=== PATIENT | female | born 1965 | race Caucasian/White ===

== ENCOUNTER → 2017-12-21 | Emergency (ER) | payer MEDICARE, OTHER ==
[~2017-12-21] MED LIST: ACETAMINOPHEN 325 MG TAB PO; SOD CHLORIDE 0.9% 500 ML IV
[2017-12-21 02:24] LABS: ADD MAN DIFF? NO
[2017-12-21 02:29] LABS: WHITE BLOOD COUNT 5.2 10^3/ul (4.8-10.8)
[2017-12-21 02:29] LABS: BASOPHILS % 0.4 % (0.0-2.0); EOSINOPHILS # 0.1 10^3/ul (0.0-0.5); EOSINOPHILS % 1.7 % (0.0-7.0); HEMATOCRIT 34.5 % (37.0-47.0); HEMOGLOBIN 10.8 g/dl (12.0-16.0); LYMPHOCYTES # 1.7 10^3/ul (0.8-2.9); LYMPHOCYTES % 32.9 % (15.0-51.0); MEAN CORPUSCULAR HEMOGLOBIN 25.5 pg (29.0-33.0); MEAN CORPUSCULAR HGB CONC 31.3 g/dl (32.0-37.0); MEAN CORPUSCULAR VOLUME 81.6 fl (82.0-101.0); MEAN PLATELET VOLUME 10.7 fl (7.4-10.4); MONOCYTE # 0.3 10^3/ul (0.3-0.9); NEUTROPHIL # 3.1 10^3/ul (1.6-7.5); NEUTROPHILS % 58.8 % (39.0-77.0); PLATELET COUNT 208 10^3/UL (140-415); RED BLOOD COUNT 4.23 10^6/ul (4.20-5.40); RED CELL DISTRIBUTION WIDTH 15.7 % (11.5-14.5)
[2017-12-21 02:44] LABS: LACTIC ACID 0.7 mmol/L (0.5-2.0)
[2017-12-21 02:45] LABS: ALANINE AMINOTRANSFERASE 22 IU/L (13-69); ALBUMIN 2.5 g/dl (3.3-4.9); ALBUMIN/GLOBULIN RATIO 0.96; ALKALINE PHOSPHATASE 73 IU/L (42-121); ANION GAP 7 (8-16); ASPARTATE AMINO TRANSFERASE 22 IU/L (15-46); BILIRUBIN,INDIRECT 0.3 mg/dl (0-1.1); BILIRUBIN,TOTAL 0.3 mg/dl (0.2-1.3); BLOOD UREA NITROGEN 5 mg/dl (7-20); CALCIUM 8.6 mg/dl (8.4-10.2); CARBON DIOXIDE 30 mmol/L (21-31); CHLORIDE 101 mmol/L (97-110); GLUCOSE 87 mg/dl (70-220); MAGNESIUM 1.7 mg/dl (1.7-2.5); POTASSIUM 3.1 mmol/L (3.5-5.1); SODIUM 135 mmol/L (135-144); TOTAL PROTEIN 5.1 g/dl (6.1-8.1)
[2017-12-21 02:48] LABS: INR 1.17; PROTIME 15.1 Sec (11.9-14.9); PT RATIO 1.2
[2017-12-21 02:49] LABS: PARTIAL THROMBOPLASTIN TIME 36.5 Sec (25.0-35.0)
[2017-12-21 02:56] LABS: TROPONIN-I < 0.012 ng/ml (0.000-0.120)
[2017-12-21] MEDS: HYDROmorphONE 0.5 MG/0.5 ML SYG IV (03:58)
[2017-12-21] MEDS: POTASSIUM CHLORIDE (SR) 20 MEQ TAB PO (03:58)
== END | disposition home or self-care (01) ==
LOC: E/R 01:17
DX: L89.890 Pressure ulcer of other site, unstageable (principal); E87.6 Hypokalemia; D64.9 Anemia, unspecified; J44.9 Chronic obstructive pulmonary disease, unspecified; I25.10 Atherosclerotic heart disease of native coronary artery without angina pectoris; R40.2142 Coma scale, eyes open, spontaneous, at arrival to emergency department; R40.2252 Coma scale, best verbal response, oriented, at arrival to emergency department; R40.2362 Coma scale, best motor response, obeys commands, at arrival to emergency department; F17.210 Nicotine dependence, cigarettes, uncomplicated; A41.9 Sepsis, unspecified organism; Z95.0 Presence of cardiac pacemaker; Z79.82 Long term (current) use of aspirin
CPT/HCPCS: 36415; 71045; 80053; 83605; 83735; 84484; 85025; 85610; 85730; 87040; 93005; 96374; 99285-25

== ENCOUNTER 2017-12-22 18:18 | Emergency (ER) | payer MEDICARE, OTHER ==
[2017-12-22] MEDS: LORAZEPAM 2 MG INJ IV (19:25)
[2017-12-22] MEDS: LORAZEPAM 1 MG TAB PO (22:17)
== END 2017-12-22 22:30 | disposition home or self-care (01) ==
LOC: E/R 22:30
DX: F41.1 Generalized anxiety disorder (principal); L89.90 Pressure ulcer of unspecified site, unspecified stage; J44.9 Chronic obstructive pulmonary disease, unspecified; F17.210 Nicotine dependence, cigarettes, uncomplicated; Z79.82 Long term (current) use of aspirin; Z95.0 Presence of cardiac pacemaker
CPT/HCPCS: 96374; 99284-25

== ENCOUNTER 2018-06-04 08:12 | Inpatient (IN) | payer MEDICARE, OTHER ==
[2018-06-04] MEDS ORDERED: BISACODYL 10 MG SUPP PR (09:00)
[2018-06-04] MEDS: LORAZEPAM 2 MG INJ IM (09:02)
[2018-06-04] MEDS: SOD CHLORIDE 0.9% 500 ML IV (09:03)
[2018-06-04 09:36] LABS: ADD MAN DIFF? NO
[2018-06-04 09:38] LABS: WHITE BLOOD COUNT 7.5 10^3/ul (4.8-10.8)
[2018-06-04 09:38] LABS: BASOPHILS % 0.4 % (0.0-2.0); EOSINOPHILS % 0.3 % (0.0-7.0); HEMATOCRIT 40.8 % (37.0-47.0); HEMOGLOBIN 12.7 g/dl (12.0-16.0); LYMPHOCYTES # 1.1 10^3/ul (0.8-2.9); LYMPHOCYTES % 14.5 % (15.0-51.0); MEAN CORPUSCULAR HEMOGLOBIN 24.5 pg (29.0-33.0); MEAN CORPUSCULAR HGB CONC 31.1 g/dl (32.0-37.0); MEAN CORPUSCULAR VOLUME 78.6 fl (82.0-101.0); MONOCYTE # 0.3 10^3/ul (0.3-0.9); MONOCYTES % 4.3 % (0.0-11.0); NEUTROPHILS % 80.1 % (39.0-77.0); PLATELET COUNT 253 10^3/UL (140-415); RED BLOOD COUNT 5.19 10^6/ul (4.20-5.40); RED CELL DISTRIBUTION WIDTH 15.7 % (11.5-14.5)
[2018-06-04 09:46] LABS: ADD UMIC YES; UR ASCORBIC ACID NEGATIVE (NEGATIVE); UR BACTERIA FEW /HPF (NONE SEEN); UR BILIRUBIN (Dip) NEGATIVE (NEGATIVE); UR BLOOD (Dip) 1+ mg/dL (NEGATIVE); UR CLARITY SLIGHTLY CLOUDY (CLEAR); UR COLOR YELLOW (YELLOW); UR GLUCOSE (Dip) NEGATIVE (NEGATIVE); UR KETONES (Dip) NEGATIVE (NEGATIVE); UR LEUKOCYTE ESTERASE (Dip) 3+ Leu/ul (NEGATIVE); UR NITRITE (Dip) POSITIVE (NEGATIVE); UR RBC 4 /HPF (0-5); UR SQUAMOUS EPITHELIAL CELL FEW /HPF (FEW); UR TOTAL PROTEIN (Dip) NEGATIVE (NEGATIVE); UR UROBILINOGEN (Dip) NEGATIVE (NEGATIVE); UR WBC 97 /HPF (0-5)
[2018-06-04 10:02] LABS: ALANINE AMINOTRANSFERASE 19 IU/L (13-69); ALBUMIN 3.8 g/dl (3.3-4.9); ALBUMIN/GLOBULIN RATIO 1.08; ALKALINE PHOSPHATASE 125 IU/L (42-121); ANION GAP 13 (5-13); ASPARTATE AMINO TRANSFERASE 24 IU/L (15-46); BILIRUBIN,INDIRECT 0.1 mg/dl (0-1.1); BILIRUBIN,TOTAL 0.1 mg/dl (0.2-1.3); BLOOD UREA NITROGEN 7 mg/dl (7-20); CALCIUM 9.6 mg/dl (8.4-10.2); CARBON DIOXIDE 28 mmol/L (21-31); CHLORIDE 102 mmol/L (97-110); CREATININE 0.43 mg/dl (0.44-1.00); Estimated GFR > 60 mL/min (>60); GLUCOSE 97 mg/dl (70-220); LIPASE 153 U/L (23-300); POTASSIUM 3.6 mmol/L (3.5-5.1); SODIUM 143 mmol/L (135-144); TOTAL PROTEIN 7.3 g/dl (6.1-8.1)
[2018-06-04] MEDS: CEFEPIME 1GM/50 ML (PMX) 50 ML IVPB (10:10)
[2018-06-04 10:13] LABS: TROPONIN-I 0.012 ng/ml (0.000-0.120)
[2018-06-04] MEDS ORDERED: ACETAMINOPHEN 325 MG TAB PO (19:00)
[2018-06-04] MEDS: HYDROmorphONE 0.5 MG/0.5 ML SYG IV (20:53)
[2018-06-04] MEDS ORDERED: COLLAGENASE 30 GM TUBE TOP (21:00)
[2018-06-04] MEDS ORDERED: NON-FORMULARY/PATIENT OWN MED (Naloxegol Oxalate (Movantik) 25 MG) PO (21:00)
[2018-06-04] MEDS: MEROPENEM 1 GM/50ML(PMX) 50 ML IVPB (21:55)
[2018-06-04] MEDS: MAGNESIUM OXIDE 400 MG TAB PO (21:56)
[2018-06-04] MEDS: ATORVASTATIN 20 MG TAB PO (21:56)
[2018-06-04] MEDS: BACLOFEN 10 MG TAB PO (21:56)
[2018-06-04] MEDS: GABAPENTIN 400 MG CAP PO (21:56)
[2018-06-04] MEDS: DOCUSATE SODIUM 100 MG CAP PO (21:57)
[2018-06-04] MEDS: IBUPROFEN 600 MG TAB PO (21:57)
[2018-06-04] MEDS: APIXABAN 5 MG TABLET PO (21:58)
[2018-06-04] MEDS: POTASSIUM CHLORIDE 20 MEQ POWDER FOR ORAL SOLN PO (21:58)
[2018-06-04] MEDS: POLYETHYLENE GLYCOL 17 GM PACKET PO (21:59)
[2018-06-04] MEDS: OXYBUTYNIN 5 MG TAB PO (22:42)
[2018-06-04] MEDS: HYDROCODONE/APAP (5/325) TAB PO (22:43)
[2018-06-04] MEDS: MULTIVITAMINS THERAPEUTIC TAB PO (22:43)
[2018-06-04] MEDS: QUETIAPINE 100 MG TAB PO (22:44)
[2018-06-04] MEDS: CYANOCOBALAMIN 500 MCG TAB PO (22:44)
[2018-06-05] MEDS: MEROPENEM 1 GM/50ML(PMX) 50 ML IVPB ×3 (05:42→21:47)
[2018-06-05 05:44] LABS: ADD MAN DIFF? NO
[2018-06-05] MEDS: IBUPROFEN 600 MG TAB PO ×3 (05:44→21:50)
[2018-06-05 06:02] LABS: BASOPHILS % 0.6 % (0.0-2.0); EOSINOPHILS # 0.1 10^3/ul (0.0-0.5); EOSINOPHILS % 1.1 % (0.0-7.0); LYMPHOCYTES # 1.9 10^3/ul (0.8-2.9); LYMPHOCYTES % 29.9 % (15.0-51.0); MEAN CORPUSCULAR HEMOGLOBIN 24.4 pg (29.0-33.0); MEAN CORPUSCULAR HGB CONC 30.8 g/dl (32.0-37.0); MEAN CORPUSCULAR VOLUME 79.4 fl (82.0-101.0); MEAN PLATELET VOLUME 11.3 fl (7.4-10.4); MONOCYTE # 0.4 10^3/ul (0.3-0.9); MONOCYTES % 6.4 % (0.0-11.0); NEUTROPHIL # 3.8 10^3/ul (1.6-7.5); NEUTROPHILS % 61.5 % (39.0-77.0); PLATELET COUNT 228 10^3/UL (140-415); RED BLOOD COUNT 4.91 10^6/ul (4.20-5.40)
[2018-06-05 06:02] LABS: WHITE BLOOD COUNT 6.3 10^3/ul (4.8-10.8)
[2018-06-05 06:30] LABS: ANION GAP 4 (5-13); BLOOD UREA NITROGEN 7 mg/dl (7-20); CALCIUM 9.5 mg/dl (8.4-10.2); CARBON DIOXIDE 30 mmol/L (21-31); CHLORIDE 109 mmol/L (97-110); CREATININE 0.45 mg/dl (0.44-1.00); Estimated GFR > 60 mL/min (>60); GLUCOSE 84 mg/dl (70-220); POTASSIUM 3.5 mmol/L (3.5-5.1); SODIUM 143 mmol/L (135-144)
[2018-06-05] MEDS: MAGNESIUM OXIDE 400 MG TAB PO (08:35)
[2018-06-05] MEDS: CYANOCOBALAMIN 500 MCG TAB PO (08:35)
[2018-06-05] MEDS: MULTIVITAMINS THERAPEUTIC TAB PO (08:35)
[2018-06-05] MEDS: BACLOFEN 10 MG TAB PO ×4 (08:35→21:46)
[2018-06-05] MEDS: DOCUSATE SODIUM 100 MG CAP PO ×2 (08:35→20:50)
[2018-06-05] MEDS: APIXABAN 5 MG TABLET PO ×2 (08:35→20:50)
[2018-06-05] MEDS: GABAPENTIN 400 MG CAP PO ×4 (08:36→21:46)
[2018-06-05] MEDS: POTASSIUM CHLORIDE 20 MEQ POWDER FOR ORAL SOLN PO (08:39)
[2018-06-05] MEDS: OXYBUTYNIN 5 MG TAB PO ×3 (08:39→20:49)
[2018-06-05] MEDS: SILVER SULFADIAZINE 1% 25 GM CR TOP (08:41)
[2018-06-05] MEDS: HYDROmorphONE 0.5 MG/0.5 ML SYG IV ×3 (08:44→20:51)
[2018-06-05] MEDS ORDERED: ENOXAPARIN 40 MG/0.4 ML SYG SC (09:00)
[2018-06-05] MEDS ORDERED: hydrALAzine 20 MG INJ IV (09:30)
[2018-06-05] MEDS: HYDROCODONE/APAP (5/325) TAB PO ×2 (11:23→22:43)
[2018-06-05] MEDS: POLYETHYLENE GLYCOL 17 GM PACKET PO ×3 (14:00→21:00)
[2018-06-05] MEDS: METOPROLOL 50 MG TAB PO ×2 (14:17→20:50)
[2018-06-05] MEDS: ATORVASTATIN 20 MG TAB PO (20:50)
[2018-06-05] MEDS: BISACODYL 10 MG SUPP PR (21:05)
[2018-06-05] MEDS: QUETIAPINE 100 MG TAB PO (22:41)
[2018-06-06] MEDS: LORAZEPAM 2 MG INJ IV (00:15)
[2018-06-06 05:37] LABS: ADD MAN DIFF? NO
[2018-06-06 05:38] LABS: WHITE BLOOD COUNT 6.3 10^3/ul (4.8-10.8)
[2018-06-06 05:38] LABS: BASOPHIL # 0.1 10^3/ul (0.0-0.1); BASOPHILS % 0.8 % (0.0-2.0); EOSINOPHILS # 0.3 10^3/ul (0.0-0.5); EOSINOPHILS % 4.8 % (0.0-7.0); HEMATOCRIT 36.3 % (37.0-47.0); HEMOGLOBIN 10.9 g/dl (12.0-16.0); LYMPHOCYTES # 2.2 10^3/ul (0.8-2.9); LYMPHOCYTES % 34.2 % (15.0-51.0); MEAN CORPUSCULAR VOLUME 79.8 fl (82.0-101.0); MEAN PLATELET VOLUME 11.3 fl (7.4-10.4); MONOCYTE # 0.4 10^3/ul (0.3-0.9); MONOCYTES % 6.4 % (0.0-11.0); NEUTROPHIL # 3.4 10^3/ul (1.6-7.5); NEUTROPHILS % 53.5 % (39.0-77.0); PLATELET COUNT 213 10^3/UL (140-415); RED BLOOD COUNT 4.55 10^6/ul (4.20-5.40); RED CELL DISTRIBUTION WIDTH 16.1 % (11.5-14.5)
[2018-06-06] MEDS: IBUPROFEN 600 MG TAB PO ×3 (05:41→22:00)
[2018-06-06] MEDS: MEROPENEM 1 GM/50ML(PMX) 50 ML IVPB ×3 (05:42→22:19)
[2018-06-06 06:02] LABS: ANION GAP 3 (5-13); BLOOD UREA NITROGEN 13 mg/dl (7-20); CARBON DIOXIDE 30 mmol/L (21-31); CHLORIDE 108 mmol/L (97-110); CREATININE 0.55 mg/dl (0.44-1.00); Estimated GFR > 60 mL/min (>60); GLUCOSE 70 mg/dl (70-220); POTASSIUM 3.5 mmol/L (3.5-5.1); SODIUM 141 mmol/L (135-144)
[2018-06-06] MEDS: DOCUSATE SODIUM 100 MG CAP PO ×2 (08:53→20:23)
[2018-06-06] MEDS: CYANOCOBALAMIN 500 MCG TAB PO (08:53)
[2018-06-06] MEDS: MAGNESIUM OXIDE 400 MG TAB PO (08:53)
[2018-06-06] MEDS: POLYETHYLENE GLYCOL 17 GM PACKET PO ×4 (08:53→20:28)
[2018-06-06] MEDS: HYDROmorphONE 0.5 MG/0.5 ML SYG IV ×3 (08:53→22:04)
[2018-06-06] MEDS: MULTIVITAMINS THERAPEUTIC TAB PO (08:53)
[2018-06-06] MEDS: POTASSIUM CHLORIDE 20 MEQ POWDER FOR ORAL SOLN PO (08:53)
[2018-06-06] MEDS: BACLOFEN 10 MG TAB PO ×4 (08:54→20:24)
[2018-06-06] MEDS: APIXABAN 5 MG TABLET PO ×2 (08:54→20:24)
[2018-06-06] MEDS: GABAPENTIN 400 MG CAP PO ×4 (08:54→20:23)
[2018-06-06] MEDS: OXYBUTYNIN 5 MG TAB PO ×3 (08:54→20:23)
[2018-06-06] MEDS: METOPROLOL 50 MG TAB PO ×2 (08:55→20:26)
[2018-06-06] MEDS: SILVER SULFADIAZINE 1% 25 GM CR TOP (09:00)
[2018-06-06] MEDS: HYDROCODONE/APAP (5/325) TAB PO ×2 (10:14→20:24)
[2018-06-06] MEDS: QUETIAPINE 100 MG TAB PO (20:23)
[2018-06-06] MEDS: ATORVASTATIN 20 MG TAB PO (20:24)
[2018-06-07] MEDS: MEROPENEM 1 GM/50ML(PMX) 50 ML IVPB (05:45)
[2018-06-07] MEDS: HYDROmorphONE 0.5 MG/0.5 ML SYG IV ×3 (05:55→16:51)
[2018-06-07] MEDS: IBUPROFEN 600 MG TAB PO ×2 (06:00→12:50)
[2018-06-07] MEDS: MAGNESIUM OXIDE 400 MG TAB PO (09:34)
[2018-06-07] MEDS: GABAPENTIN 400 MG CAP PO ×3 (09:34→16:51)
[2018-06-07] MEDS: BACLOFEN 10 MG TAB PO ×3 (09:35→16:51)
[2018-06-07] MEDS: APIXABAN 5 MG TABLET PO (09:35)
[2018-06-07] MEDS: DOCUSATE SODIUM 100 MG CAP PO (09:35)
[2018-06-07] MEDS: POTASSIUM CHLORIDE 20 MEQ POWDER FOR ORAL SOLN PO (09:35)
[2018-06-07] MEDS: OXYBUTYNIN 5 MG TAB PO ×2 (09:35→12:50)
[2018-06-07] MEDS: POLYETHYLENE GLYCOL 17 GM PACKET PO ×2 (09:36→12:50)
[2018-06-07] MEDS: CYANOCOBALAMIN 500 MCG TAB PO (09:36)
[2018-06-07] MEDS: SILVER SULFADIAZINE 1% 25 GM CR TOP (09:37)
[2018-06-07] MEDS: MULTIVITAMINS THERAPEUTIC TAB PO (09:37)
[2018-06-07] MEDS: METOPROLOL 50 MG TAB PO (09:37)
[2018-06-07] MEDS: HYDROCODONE/APAP (5/325) TAB PO (09:53)
[2018-06-07] MEDS: AMIKACIN 500 MG in DEXTROSE 5% 100 ML IVPB (14:13)
== END 2018-06-07 19:20 | disposition home or self-care (01) | DRG 592 ==
LOC: 2NE 17:36 → E/R 08:12 → 2NE 10:28
DX: L89.149 Pressure ulcer of left lower back, unspecified stage (principal); G82.50 Quadriplegia, unspecified; N39.0 Urinary tract infection, site not specified; F41.9 Anxiety disorder, unspecified; R45.1 Restlessness and agitation; G89.4 Chronic pain syndrome; E86.0 Dehydration; Z79.02 Long term (current) use of antithrombotics/antiplatelets; N31.9 Neuromuscular dysfunction of bladder, unspecified; Z93.50 Unspecified cystostomy status; Z86.718 Personal history of other venous thrombosis and embolism; N32.89 Other specified disorders of bladder
CPT/HCPCS: 36415; 80048; 80053; 81001; 83690; 84484; 85025; 87040; 87086; 96372; 96374; 99285-25

== ENCOUNTER 2018-06-13 02:59 | Emergency (ER) | payer MEDICARE, OTHER ==
[2018-06-13] MEDS: HYDROmorphONE 2 MG/ML SYG IM (04:06)
== END 2018-06-13 09:01 | disposition home or self-care (01) ==
LOC: E/R 02:59
DX: M54.9 Dorsalgia, unspecified (principal); I25.10 Atherosclerotic heart disease of native coronary artery without angina pectoris; R40.2142 Coma scale, eyes open, spontaneous, at arrival to emergency department; R40.2252 Coma scale, best verbal response, oriented, at arrival to emergency department; R40.2362 Coma scale, best motor response, obeys commands, at arrival to emergency department; Z95.0 Presence of cardiac pacemaker; Z87.891 Personal history of nicotine dependence
CPT/HCPCS: 96372; 99284-25